=== PATIENT | female | born 1940 | race Caucasian/White ===

== ENCOUNTER → 2016-09-30 | Outpatient (CLI) | payer MEDICARE | END | disposition home or self-care (01) | LOC: PCVCCLINIC 14:33 | PROVIDERS: ATTEND Internal Medicine Cardiovascular Disease | DX: R07.89 Other chest pain (principal); I10 Essential (primary) hypertension; E11.9 Type 2 diabetes mellitus without complications; G45.9 Transient cerebral ischemic attack, unspecified; E78.00 Pure hypercholesterolemia, unspecified; Z79.82 Long term (current) use of aspirin; Z79.84 Long term (current) use of oral hypoglycemic drugs; Z87.891 Personal history of nicotine dependence | CPT/HCPCS: 93005; G0463 ==

== ENCOUNTER → 2016-12-17 | Outpatient (CLI) | payer MEDICARE | END | disposition home or self-care (01) | LOC: PCVCCLINIC 10:50 | PROVIDERS: ATTEND Internal Medicine Cardiovascular Disease | DX: I10 Essential (primary) hypertension (principal); E78.00 Pure hypercholesterolemia, unspecified; E11.9 Type 2 diabetes mellitus without complications; K21.9 Gastro-esophageal reflux disease without esophagitis; Z86.73 Personal history of transient ischemic attack (TIA), and cerebral infarction without residual deficits; Z96.653 Presence of artificial knee joint, bilateral; Z88.2 Allergy status to sulfonamides; Z79.82 Long term (current) use of aspirin; Z79.899 Other long term (current) drug therapy; Z79.84 Long term (current) use of oral hypoglycemic drugs; Z98.51 Tubal ligation status; Z87.891 Personal history of nicotine dependence | CPT/HCPCS: 93005; G0463 ==

== ENCOUNTER → 2017-08-19 | Outpatient (CLI) | payer MEDICARE | END | disposition home or self-care (01) | LOC: PCVCIMAG 10:23 | DX: I08.8 Other rheumatic multiple valve diseases (principal); I10 Essential (primary) hypertension; R07.9 Chest pain, unspecified; E78.00 Pure hypercholesterolemia, unspecified; R60.9 Edema, unspecified; Z79.899 Other long term (current) drug therapy; Z87.891 Personal history of nicotine dependence | CPT/HCPCS: 93005; 93306; G0463 ==

== ENCOUNTER → 2018-08-18 | Outpatient (CLI) | payer MEDICARE ==
--- NOTE | 2018-08-18 09:46 | PCVCIMAG ---
APPROVED REPORT Study performed: 08/18/2018 08:23:34 EXAM: Comprehensive 2D, Doppler, and color-flow Echocardiogram Patient Location: Echo lab Status: routine BSA: 1.96 HR: 68 bpmBP: 130/74 mmHg Rhythm: NSR Other Information Study Quality: Adequate Risk Factors: Cardiac Risk Factors: HTN, Hyperlipidemia Indications Chest Pain hx TIA 2D Dimensions IVSd: 11.35 (7-11mm) LVDd: 38.37 mm PWd: 10.86 (7-11mm) LVDs: 25.76 (25-40mm) Left Atrium: 41.33 (27-40mm) Aortic Root: 31.44 mm LV Single Plane 4CH: 66.42 % LV Single Plane 2CH: 68.46 % Biplane EF: 68.6 % Volumes Left Atrial Volume (Systole) Single Plane 4CH: 73.23 mLSingle Plane 2CH: 71.98 mL LA ESV Index: 38.00 mL/m2 Aortic Valve AoV Peak Brendan.: 1.74 m/s AO Peak Gr.: 12.10 mmHgLVOT Max P.30 mmHg LVOT Max V: 1.15 m/s AI Vmax: 4.09 m/s AI [place]: 2.64 m/s2 AI PHT: 451.82 ms Mitral Valve MV Peak Gr.: 8.00 mmHg MV Mean Gr.: 3.76 mmHgE/A Ratio: 0.8 MV Decel. Time: 334.70 ms MV E Max Brendan.: 1.25 m/s MV A Brendan.: 1.48 m/s MV Max Brendan.: 1.41 m/s MV Mean Brendan.: 0.92 m/s MV VTI: 434.61 mm MV PHT: 121.80 ms MVA (PHT): 1.81 cm2 IVRT: 103.81 ms Pulmonary Valve PV Peak Brendan.: 0.92 m/sPV Peak Gr.: 3.37 mmHg Pulmonary Vein P Vein S: 0.28 m/sP Vein A: 0.33 m/s P Vein D: 0.38 m/sP Vein A Dur.: 134.9 msec P Vein S/D Ratio: 0.74 Tricuspid Valve TR Peak Brendan.: 2.33 m/s TR Peak Gr.: 21.66 mmHg TV Vmax: 0.65 m/s Left Ventricle The left ventricle is normal size. There is normal LV segmental wall motion. There is normal left ventricular wall thickness. Left ventricular systolic function is normal. The left ventricular ejection fraction is within the normal range. LVEF is 60-65%. Grade I - abnormal relaxation pattern. Right Ventricle The right ventricle is normal size. The right ventricular systolic function is normal. Atria Left atrium is mildly dilated. The right atrium size is normal. Aortic Valve The aortic valve is normal in structure. Mild aortic regurgitation. There is no aortic valvular stenosis. Mitral Valve Moderate posterior mitral annular calcification. Mild mitral regurgitation. No evidence of mitral valve stenosis. Tricuspid Valve The tricuspid valve is normal in structure. Mild tricuspid regurgitation with PAP of 29 mmHg. Pulmonic Valve The pulmonary valve is normal in structure. Mild pulmonic regurgitation. Great Vessels The aortic root is normal in size. IVC is normal in size and collapses >50% with inspiration. Pericardium There is no pericardial effusion. There is no pleural effusion. <Conclusion> The left ventricle is normal size. There is normal left ventricular wall thickness. Left ventricular systolic function is normal. Grade I - abnormal relaxation pattern. The right ventricle is normal size. Left atrium is mildly dilated. Mild aortic regurgitation. Moderate posterior mitral annular calcification. Mild mitral regurgitation. Mild tricuspid regurgitation with PAP of 29 mmHg.
== END | disposition home or self-care (01) ==
LOC: PCVCIMAG 13:48
PROVIDERS: ATTEND Internal Medicine Cardiovascular Disease
DX: I08.3 Combined rheumatic disorders of mitral, aortic and tricuspid valves (principal); I10 Essential (primary) hypertension; E78.00 Pure hypercholesterolemia, unspecified; R60.9 Edema, unspecified; E11.9 Type 2 diabetes mellitus without complications; K21.9 Gastro-esophageal reflux disease without esophagitis; Z87.891 Personal history of nicotine dependence
CPT/HCPCS: 93005; 93306; G0463